=== PATIENT | female | born 1965 | race Two or more races ===

== ENCOUNTER 2024-04-06 20:51 | Emergency (ER) | payer BC ==
[~2024-04-06] VITALS: Ht 154.9 cm; Wt 75.0 kg
[2024-04-06] MEDS: KETOROLAC TROMETH 30 MG/ML 1ML VIAL IM ONE (23:02)
[2024-04-06] MEDS ORDERED: CYCL-837 PO (23:19)
[2024-04-06] MEDS ORDERED: IBUP-1454 PO (23:19)
[2024-04-06 23:40] VITALS: BP 132/82; PULSE 86; RESP 18; TEMP 99.2; O2SAT 98
== END 2024-04-06 23:45 | disposition home or self-care (01) ==
LOC: ER 20:51
DX: R07.89 Other chest pain (principal); M54.6 Pain in thoracic spine; Z79.899 Other long term (current) drug therapy; V98.8XXA Other specified transport accidents, initial encounter; Y93.89 Activity, other specified; Y92.89 Other specified places as the place of occurrence of the external cause; Y99.8 Other external cause status
CPT/HCPCS: 71045; 96372; 99283; J1885